=== PATIENT | male | born 1960 | race Caucasian/White ===

== ENCOUNTER 2016-06-08 12:59 | Inpatient (IN) | payer BC ==
[~2016-06-08 12:59] MED LIST: IBUPROFEN800 M1 PO; NORCO 5-325 TA1 EACH PO; NORVASC5 MG PO; OMEPRAZOLE20 MG PO; PERCOCET 5/3251 TAB PO; PRAVASTATIN SOD80 MG PO; ZIAC PO
[2016-06-08] MEDS ORDERED: ASPIRIN325 M3 PO (13:10)
[2016-06-08] MEDS ORDERED: LOSARTAN-HCTZ1 EAC5 PO (13:10)
[2016-06-08] MEDS ORDERED: GLUCOPHAGE500 M3 PO (13:11)
[2016-06-08] MEDS ORDERED: KAYEXALATE453.6 G1 PO (13:11)
[2016-06-08 13:46] LABS: BASO % 0.2 % (0-2); EOS % 0.7 % (0-7); EOSINOPHIL ABSOLUTE COUNT 0.1 tho/cmm (0.0-0.7); HCT-HEMATOCRIT 44.9 % (36.0-53.5); HGB-HEMOGLOBIN 14.2 gm/dl (13.5-17.0); IMMATURE GRANULOCYTES ABSOLUTE 0.05 tho/cmm (0-0.03); IMMATURE GRANULOCYTES PERCENT 0.4 % (0-0.3); LYMPH % 18.8 % (20-45); LYMPH ABSOLUTE COUNT 2.1 tho/cmm (0.8-4.5); MCH (MEAN CORPUSCULAR HGB) 28.4 pg (28.0-32.0); MCHC MEAN CORPUSCULAR HGB CONC 31.6 % (32.0-36.0); MCV (MEAN CELL VOLUME) 89.8 fl (82.0-96.0); MEAN PLATELET VOLUME 10.6 cmc (9.4-12.4); MONO % 6.8 % (0-12); MONOCYTE ABSOLUTE COUNT 0.8 tho/cmm (0.0-1.2); NEUTROPHIL ABSOLUTE COUNT 8.1 tho/cmm (1.6-8.0); NEUTROPHIL-AUTOMATED 8.1 tho/cmm (1.6-8.0); NEUTROPHILS % 73.1 % (40-80); PLATELET COUNT 289 tho/cmm (150-450); RED CELL DISTRIBUTION WIDTH 15.9 % (12.4-16.4); WHITE BLOOD COUNT 11.2 tho/cmm (4.0-10.0)
[2016-06-08 13:51] LABS: ANION GAP 12 mmol/L (0-20); BLOOD UREA NITROGEN 19 mg/dl (6-24); CARBON DIOXIDE-VENOUS 27 mmol/L (22-32); CHLORIDE 104 mmol/l (96-110); CREATININE 1.09 mg/dl (0.60-1.30); GLUCOSE 119 mg/dL (70-110); SODIUM 139 mmol/L (135-145); eGFR VALUE FOR BLACK 89 mL/Min
[2016-06-08 13:57] LABS: POTASSIUM 4.2 mmol/L (3.7-5.1)
[2016-06-08] MEDS ORDERED: PERCOCET 5-3251 EACH PO (15:22)
[2016-06-08] MEDS ORDERED: COMPAZINE10 MG PO (15:22)
[2016-06-08] MEDS ORDERED: BACTRIM DS TAB1 EAC2 PO (15:22)
[2016-06-08 16:14] LABS: INR 0.9 INR (0.9-1.1); PROTHROMBIN TIME 10.7 SECONDS (9.0-13.6)
[2016-06-09 03:00] LABS: ANION GAP 9 mmol/L (0-20); BLOOD UREA NITROGEN 17 mg/dl (6-24); CALCIUM 8.8 mg/dl (8.5-10.5); CARBON DIOXIDE-VENOUS 31 mmol/L (22-32); CHLORIDE 102 mmol/l (96-110); GLUCOSE 125 mg/dL (70-110); SODIUM 138 mmol/L (135-145); eGFR VALUE FOR BLACK >90 mL/Min
[2016-06-09] MEDS ORDERED: ZEBETA5 M2 PO (13:31)
== END 2016-06-09 16:15 | DRG 313 ==
LOC: EDMED 12:59 → EMR2 17:49 → PCUA 19:05
PROVIDERS: Emergency Medicine; ADMIT Internal Medicine
DX: R07.9 Chest pain, unspecified (principal); T44.7X6A Underdosing of beta-adrenoreceptor antagonists, initial encounter; Z68.43 Body mass index [BMI] 50.0-59.9, adult; I10 Essential (primary) hypertension; E66.01 Morbid (severe) obesity due to excess calories; E11.9 Type 2 diabetes mellitus without complications; E78.5 Hyperlipidemia, unspecified; E87.5 Hyperkalemia; G47.30 Sleep apnea, unspecified; Z86.711 Personal history of pulmonary embolism; Z91.138 Patient's unintentional underdosing of medication regimen for other reason
CPT/HCPCS: A9540; A9558; G0009; J1650; J7030; Q9967